=== PATIENT | male | born 1980 | race African-American/Black ===

== ENCOUNTER 2020-04-29 20:15 | Emergency (ER) | payer MEDICAID ==
[~2020-04-29] VITALS: Ht 177.8 cm; Wt 78.0 kg
[2020-04-29 20:25] VITALS: BP 148/68
[2020-04-29] MEDS ORDERED: LORAZEPAM 2MG/ML CPJ IM ONE (21:00)
== END 2020-04-29 22:58 | disposition home or self-care (01) ==
LOC: ER 20:15
DX: F41.0 Panic disorder [episodic paroxysmal anxiety] (principal); F12.10 Cannabis abuse, uncomplicated
CPT/HCPCS: 96372; 99283; J2060